=== PATIENT | female | born 1950 | race Caucasian/White ===

== ENCOUNTER 2017-05-14 18:55 | Emergency (ER) | payer OTHER, MEDICAID ==
[2017-05-14] MEDS: HYDROCODONE/APAP (5/325) TAB PO (20:46)
== END 2017-05-14 22:24 | disposition home or self-care (01) ==
LOC: FTE 18:55
DX: M17.9 Osteoarthritis of knee, unspecified (principal); M79.604 Pain in right leg; M79.605 Pain in left leg
CPT/HCPCS: 93970; 99283